=== PATIENT | male | born 1970 | race Caucasian/White ===

== ENCOUNTER 2019-04-07 00:48 | Emergency (ER) | payer OTHER | END 2019-04-07 02:57 | disposition other institution (70) | LOC: ED 00:48 | DX: Z02.89 Encounter for other administrative examinations (principal) ==

== ENCOUNTER 2019-04-07 00:48 | Emergency (ER) | payer OTHER ==
[~2019-04-07] VITALS: Ht 170.2 cm; Wt 81.6 kg
[2019-04-07 00:53] VITALS: Ht 170.2 cm; Wt 81.6 kg
[2019-04-07 01:27] LABS: PLATELET COUNT 302 x10^3mcL (130-400); RED CELL DISTRIBUTION WIDTH 13.9 % (11.5-14.5)
[2019-04-07 01:33] LABS: CALCIUM 9.4 mg/dL (8.5-10.1); CHLORIDE SERUM 102 mmol/L (98-107); CREATININE SERUM 1.1 mg/dL (0.7-1.3); GFR1 > 60 mL/min; GLUCOSE SERUM 162 mg/dL (74-106); SODIUM SERUM 141 mmol/L (136-145)
[2019-04-07 01:37] LABS: ALBUMIN 3.9 g/dL (3.4-5.0); ALKALINE PHOSPHATASE 98 U/L (46-116); ALT/SGPT 43 U/L (16-63); AST/SGOT 30 U/L (15-37); BILIRUBIN TOTAL 0.34 mg/dL (0.20-1.00); TOTAL PROTEIN, SERUM 7.8 g/dL (6.4-8.2)
[2019-04-07 02:25] LABS: AMPHETAMINE QUAL UR NONE DETECTED (See below)
[2019-04-07 02:57] VITALS: BP 108/66
== END 2019-04-07 02:57 | disposition other institution (70) ==
LOC: ED 00:48
PROVIDERS: Emergency Medicine
DX: F10.129 Alcohol abuse with intoxication, unspecified (principal); E11.9 Type 2 diabetes mellitus without complications
CPT/HCPCS: 82962; G0480; J2060; J7030